=== PATIENT | female | born 1950 | race Caucasian/White ===

== ENCOUNTER → 2016-07-12 | Outpatient (CLI) | payer OTHER ==
[2015-11-18 17:30] VITALS: BP 152/77
[~2016-07-12] MED LIST: ASPI81TA2 PO; ESCI5TAB PO; ESOM2.5S PO; HYDR-971 PO; MAGN27TA3 PO; OMEG300C PO
[2016-07-12] MEDS: IOHEXOL 300 MG/ML 75 ML VIAL. IV ONE (09:58)
[2016-07-12] MEDS: IOHEXOL 240 MG/ML 50ML VIAL. PO ONE (09:59)
--- NOTE | 2016-07-12 11:20 | RAD ---
CT of the abdomen and pelvis with contrast, 07/12/2016: History: Left lower quadrant pain Multidetector CT imaging was performed following oral and IV administration of contrast. The liver is unremarkable. No gallbladder abnormality is seen. The pancreas shows no abnormality. There are calcified granulomata in the spleen. The spleen is of normal size. There appear to be several parapelvic renal cysts on the left. The kidneys show no evidence of obstruction. The adrenal glands are unremarkable. The abdominal aorta is of normal caliber. No abdominal or pelvic adenopathy is seen. The uterus is unremarkable. Several pelvic phleboliths are noted. The bowel loops are not dilated. The appendix is visualized and shows no abnormality. No free fluid is evident in the abdomen or pelvis. IMPRESSION: 1. Small left renal cysts. 2. No acute abdominal or pelvic abnormality is detected. PQRS Compliance Statement: One or more of the following individualized dose reduction techniques were utilized for this examination: 1. Automated exposure control 2. Adjustment of the mA and/or kV according to patient size 3. Use of iterative reconstruction technique
== END | disposition home or self-care (01) ==
LOC: CT 08:03
PROVIDERS: ATTEND Surgery
DX: R10.32 Left lower quadrant pain (principal); N28.1 Cyst of kidney, acquired
CPT/HCPCS: 74177; Q9966; Q9967

== ENCOUNTER → 2016-07-17 | Outpatient (CLI) | payer OTHER ==
[2015-11-18 17:30] VITALS: BP 152/77
--- NOTE | 2016-07-17 13:56 | RAD ---
Right breast ultrasound, 07/17/2016: History: Six-month follow-up of breast nodules A targeted ultrasound exam of the right breast was performed for reevaluation of small hypoechoic nodules seen on 02/09/2016. At the 6:00 location approximately 4 cm from the nipple there is a tiny 2 x 3 x 2 mm hypoechoic nodule which is unchanged. There is a nearby elongated 5 x 4 x 3 cm hypoechoic nodule which is also unchanged. These are likely complicated cysts versus small fibroadenomas. At the 7:00 location approximately 3 cm from the nipple there is an elongated lesion measuring 7 x 3 x 3 mm. This structure is nearly anechoic and is probably a cyst. It is unchanged. IMPRESSION: Stable small benign-appearing right breast nodules as described above. Further sonographic surveillance in 6 months at the time of the patient's yearly mammograms is suggested. BI-RADS 3-probably benign findings
== END | disposition home or self-care (01) ==
LOC: US 12:49
PROVIDERS: ATTEND Specialist
DX: N63 Unspecified lump in breast (principal)
CPT/HCPCS: 76641

== ENCOUNTER → 2016-07-24 | Outpatient (CLI) | payer MEDICARE, OTHER ==
[2015-11-18 17:30] VITALS: BP 152/77
--- NOTE | 2016-07-24 17:29 | RAD ---
PROCEDURE CT scan of the head without contrast 07/24/2016 HISTORY Diffuse headaches for 3 weeks. TECHNIQUE Unenhanced contiguous, 5 millimeter axial sections were obtained through the head. One or more of the following individualized dose reduction techniques were utilized for this study: 1. Automated exposure control. 2. Adjustment of the mA and/or kV according to patient size. 3. Use of iterative reconstruction technique. FINDINGS There is generalized parenchymal atrophy. Areas of decreased attenuation are seen within the white matter both cerebral hemispheres consistent with areas of small vessel ischemic disease. No acute parenchymal abnormality is seen. No extra-axial fluid collection is noted. No skull fracture is seen. IMPRESSION No acute intracranial abnormality is seen. Electronically signed by: Kenton Tse MD (Jul 24, 2016 17:27:40)
== END | disposition home or self-care (01) ==
LOC: CT 16:54
PROVIDERS: ATTEND Nurse Practitioner Family
DX: G44.59 Other complicated headache syndrome (principal)
CPT/HCPCS: 70450

== ENCOUNTER → 2017-01-15 | Outpatient (CLI) | payer MEDICARE, OTHER ==
[2015-11-18 17:30] VITALS: BP 152/77
[~2017-01-15] MED LIST changes: +ASPI-630 PO; -ASPI81TA2 PO; -ESCI5TAB PO; +ESCITALOPRAM OXA5 MG PO
--- NOTE | 2017-01-15 15:12 | RAD ---
DATE: 01/15/2017 EXAM: MAMMO DAVE DIAG BILAT, BREAST RIGHT HISTORY: 6 month follow-up COMPARISON: 12/26/2015 and ultrasound from 07/17/2016 This study was interpreted with the benefit of Computerized Aided Detection (CAD). FINDINGS: Breast Density: SCATTERED The breast parenchyma shows scattered fibroglandular densities. Breast parenchyma level B. Bilateral breast nodules are similar to prior exam. Left breast biopsy clip marker identified. On the ultrasound there is a small hypoechoic nodule measuring 2.1 mm at 6:00 position 2 cm of the nipple grossly similar to prior exam stable since 02/09/2016. At 7:00 position 3 cm from the nipple there is a cystic structure identified likely a cyst again noted. IMPRESSION: Benign findings BI-RADS CATEGORY: 2 BENIGN FINDING RECOMMENDED FOLLOW-UP: 12M 12 MONTH FOLLOW-UP PQRS compliance statement: Patient information was entered into a reminder system with a target due date 01/15/2018 for the next mammogram. Mammography is a sensitive method for finding small breast cancers, but it does not detect them all and is not a substitute for careful clinical examination. A negative mammogram does not negate a clinically suspicious finding and should not result in delay in biopsying a clinically suspicious abnormality. "Our facility is accredited by the [employer] Mammography Program."
== END | disposition home or self-care (01) ==
LOC: MAMMO 12:42
PROVIDERS: ATTEND Family Medicine
DX: N63 Unspecified lump in breast (principal)
CPT/HCPCS: 76641; G0204; G0279; 77062; 77066

== ENCOUNTER 2020-07-05 13:55 | Emergency (ER) | payer OTHER, MEDICARE ==
[~2020-07-05] VITALS: Ht 157.5 cm; Wt 93.0 kg
[~2020-07-05 13:55] MED LIST changes: +HYDR-3165 PO; -HYDR-971 PO
[2020-07-05] MEDS ORDERED: LORazepam 1 MG TABLET PO ONE (14:45)
--- NOTE | 2020-07-05 14:45 | PHYS DOC ---
Past History Past Medical History: Arthritis, GERD Past Surgical History: No Surgical History, Other Additional Past Surgical Histo: Bladder sling Alcohol Use: None Drug Use: None Adult General Chief Complaint Chief Complaint: FATIGUE HPI HPI Patient is a 69-year-old female who presents to the emergency department complaining of crying spells, sweating spells, periods of feeling shaky today. Patient states she has been closely followed by her primary care physician Dr. Stern related to ongoing "menopausal type symptoms ", patient states Dr. Stern had her see an rib knitter Dr. STEWART who performed an extensive work-up on her and started her on Metformin 500 mg a day with the plan to increase by 500 mg/day each week until she reaches a total of 2000 mg/day. Patient states she has not increased to 2 500 mg tabs per day yet, has only started approximately 5 to 6 days ago. Patient feels that this medication might be causing her symptoms. Patient reports frequent headaches however does not have a headache today. Patient denies abdominal pains, nausea, vomiting, diarrhea, or constipation. Patient denies chest pain, chest congestion, nasal congestion, cough, recent fever or chills. Patient denies numbness or tingling to her extremities. Patient states she was to stop her aspirin and start the Metformin. Patient states she had a negative mammogram and negative MRI this past week. Patient reports some low back pain intermittently that she attributes to taking care of her with a diagnosis of Parkinson's disease, rates her pain a 4/10 on a 1-10 pain scale when she does have pain, patient denies pain at this time. Patient denies burning with urination, increased urination, or other urinary tract infection type signs or symptoms. Patient denies vaginal discharge or vaginal bleeding. Patient denies any swelling to her extremities. Patient denies having increased thirst or increased urination. Patient states she is not diabetic. Review of Systems Review of Systems 14 body systems of review of systems have been reviewed. See HPI for pertinent positives and negative responses, otherwise all other systems are negative, nonpertinent or noncontributory. Allergies Allergies Allergies Coded Allergies Type Severity Reaction Last Updated Verified Sulfa (Sulfonamide Antibiotics) Allergy Intermediate 08/26/13 Yes dexamethasone Allergy Unknown 07/12/16 Yes tobramycin Allergy Unknown 07/12/16 Yes Physical Exam Physical Exam Constitutional: Well developed, well nourished, no acute distress, non-toxic appearance. Patient anxious during exam, moving around in bed. HENT: Normocephalic, atraumatic, bilateral external ears normal, oropharynx moist, no oral exudates, nose normal. Bilateral TMs within normal limits, no drainage from external auditory canals, bilateral nasal turbinates moist, no erythema or edema, no drainage noted, oropharynx moist, pink, without signs and symptoms of infectious process, there is no lymphadenopathy of the head or neck appreciated. Eyes: PERRLA, EOMI, conjunctiva normal, no discharge. Neck: Normal range of motion, no tenderness, supple, no stridor. No midline spinal tenderness, no meningismus signs, no nuchal rigidity appreciated. Cardiovascular:Heart rate regular rhythm, heart sounds S1-S2 to auscultation. Lungs & Thorax: Bilateral breath sounds clear to auscultation all lung borrego, no adventitious lung sounds appreciated. Abdomen: Bowel sounds normal, soft, no tenderness, no masses, no pulsatile masses. Skin: Warm, dry, no erythema, no rash. Back: No tenderness, no CVA tenderness. Extremities: No tenderness, no cyanosis, no clubbing, ROM intact, no edema. Neurologic: Alert and oriented X 3, normal motor function, normal sensory function, no focal deficits noted. Psychologic: Affect anxious, judgement normal, mood normal. Current Patient Data Vital Signs Vital Signs Date Time Temp Pulse Resp B/P (MAP) Pulse Ox O2 Delivery O2 Flow Rate FiO2 07/05/20 14:00 98.1 82 25 144/83 (103) 100 Room Air Lab Results Laboratory Tests Test 07/05/20 14:14 Glucose (Fingerstick) 106 mg/dL (70-99) H EKG EKG [] Radiology/Procedures Radiology/Procedures [] Heart Score C/O Chest Pain: No Risk Factors: Risk Factors: DM, Current or recent (<one month) smoker, HTN, HLP, family history of CAD, obesity. Risk Scores: Risk Factors: DM, Current or recent (<one month) smoker, HTN, HLP, family history of CAD, obesity. Course & Med Decision Making Course & Med Decision Making Pertinent Labs and Imaging studies reviewed. (See chart for details) 69-year-old female, vital signs reviewed, presents to the emergency department concerning for periods of crying, sweating, shaking. Physical examination concerning for anxiety attack versus anxiety reaction to medication changes. ED work-up CBC, CMP, urinalysis assay. TSH. Will give 1/2 mg p.o. Ativan for anxious presentation. Upon reexamination of the patient, patient states she feels much better and is having no more symptoms, patient feels as if the Ativan helped. Patient's labs are unremarkable, her urine was not infected, TSH is pending at this time however her rib knitter may have evaluated this in the past week however I did not have access to these lab values. Discussed with patient lab findings, with patient feeling much better after given anxiolytic medication, this most likely is a anxiety reaction to either physical concerns or medication change. Encouraged patient to follow-up with her primary care Dr. Stern and let her know she was treated with Ativan for consideration of a possible prescription for more. Patient states she will call today when she leaves the emergency department for an appointment to see Dr. Stern tomorrow. Patient states she has a follow-up appointment with her rib knitter this next month. Patient gave verbal understanding of discharge home instructions, follow-up with PCP, follow-up with endocrinology, return to ER precautions and concerns, was discharged home without incident. Dragon Disclaimer Dragon Disclaimer This electronic medical record was generated, in whole or in part, using a voice recognition dictation system. Departure Departure: Impression: Primary Impression: Anxiety reaction Disposition: 01 DC HOME SELF CARE/HOMELESS Condition: GOOD Referrals: NOHEMI STERN (PCP) Patient Instructions: Anxiety and Panic Attacks Additional Instructions: You are seen and evaluated today in the emergency department. Your urine did not show any concerning infectious findings, your lab work did not show any concerning infectious findings or abnormal values that need corrected in the emergency department today or need admission to the hospital. Your physical presentation had an anxiety component, I treated you with 1/2 mg Ativan tablet, this seemed to help as your symptoms resolved during your emergency department stay waiting for lab values to complete. Please call Dr. Stern tomorrow and let her know you were given 1/2 mg Ativan for your symptoms and it seemed to help as Dr. Stern may consider writing a prescription for more. Do not change any medication regimens your doctors have placed you on. Keep taking your medications as directed by them. Please keep your appointments with your rib knitter and Dr. Stern. Return to the emergency department for worsening symptoms or other concerns. EMERGENCY DEPARTMENT GENERAL DISCHARGE INSTRUCTIONS Thank you for coming to [facility] (ED) today and trusting us with you care. We trust that you had a positivie experience in our Emergency Department. If you wish to speak to the department management, you may call the director at [phone]. YOUR FOLLOW UP INSTRUCTIONS ARE FOLLOWS: 1. Do you have a private Doctor? If you do not have a private doctor, please ask for a resource list of physicians or clinics that may be able to assist you with follow up care. 2. The Emergency Physician has interpreted your x-rays. The X-Ray specialist will also review them. If there is a change in the findings, you will be notified in 48 hours when at all possible. 3. A lab test or culture has been done, your results will be reviewed and you will be notified if you need a change in treatment. ADDITIONAL INSTRUCTIONS AND INFORMATION: 1. Your care today has been supervised by a physician who is specially trained in emergency care. Many problems require more than one evaluation for a complete diagnosis and treatment. We recommend that you schedule your follow up appointment as recommended to ensure complete treatment of you illness or injury. If you are unable to obtain follow up care and continue to have a problem, or if your condition worsens, we recommend that you return to the ED. 2. We are not able to safely determine your condition over the phone nor are we able to give sound medical advice over the phone. For these safety reasons, if you call for medical advice we will ask you to come to the ED for further evaluation. 3. If you have any questions regarding these discharge instructions please call the ED at [phone]. SAFETY INFORMATION: In the interest of safety, wellness, and injury prevention; we encourage you to wear your sealbelt, if you smoke; quite smoking, and we encourage family to use a pro tective helmet for bicycling and other sporting events that present an increased risk for head injury. IF YOUR SYMPTOMS WORSEN OR NEW SYMPTOMS DEVELOP, OR YOU HAVE CONCERNS ABOUT YOUR CONDITION; OR IF YOUR CONDITION WORSENS WHILE YOU ARE WAITING FOR YOUR FOLLOW UP APPOINTMENT; EITHER CONTACT YOUR PRIMARY CARE DOCTOR, THE PHYSICIAN WHOSE NAME AND NUMBER YOU WERE GIVEN, OR RETURN TO THE ED IMMEDIATELY. KING PALACIO APRN Jul 05, 2020 14:45
[2020-07-05 15:31] LABS: BACTERIA,URINE 0 /HPF (0-FEW); BILIRUBIN,URINE NEG (NEG); CLARITY,URINE CLEAR; COLOR,URINE YELLOW; GLUCOSE,URINE NEG (NEG); HYALINE CASTS, URINE OCC /HPF; NITRITE,URINE NEG (NEG); RBC,URINE 0 /HPF (0-2); SQUAMOUS EPITHELIAL CELL,UR OCC /LPF; UROBILINOGEN,URINE 0.2 mg/dL (0.2 mg/dL); WBC,URINE RARE /HPF (0-4)
[2020-07-05 15:32] LABS: BASO % 1 % (0-3); EOS # 0.1 x10^3/uL (0.0-0.7); EOS % 1 % (0-3); HEMATOCRIT 38.2 % (36.0-47.0); HEMOGLOBIN 12.6 g/dL (12.0-15.5); LYMPH # 1.5 x10^3/uL (1.0-4.8); LYMPH % 26 % (24-48); MEAN CORPUSCULAR HEMOGLOBIN 31 pg (25-35); MEAN CORPUSCULAR HGB CONC 33 g/dL (31-37); MEAN CORPUSCULAR VOLUME 93 fL (79-100); MONO # 0.6 x10^3/uL (0.0-1.1); MONO % 10 % (0-9); NEUT # 3.6 x10^3uL (1.8-7.7); NEUT % 62 % (31-73); PLATELET COUNT 237 x10^3/uL (140-400); RED BLOOD COUNT 4.13 x10^6/uL (3.50-5.40); RED CELL DISTRIBUTION WIDTH 13.2 % (11.5-14.5); WHITE BLOOD COUNT 5.7 x10^3/uL (4.0-11.0)
[2020-07-05 15:36] LABS: CALCIUM 9.5 mg/dL (8.5-10.1); CREATININE 1.3 mg/dL (0.6-1.0); GFR 40.7
[2020-07-05 15:42] LABS: ALBUMIN 4.2 g/dL (3.4-5.0); ALBUMIN/GLOBULIN RATIO 1.3 (1.0-1.7); TOTAL BILIRUBIN 0.3 mg/dL (0.2-1.0); TOTAL PROTEIN 7.5 g/dL (6.4-8.2)
[2020-07-05 16:35] VITALS: BP 156/76
== END 2020-07-05 16:55 | disposition home or self-care (01) ==
LOC: ER 13:55
DX: F41.9 Anxiety disorder, unspecified (principal); M19.90 Unspecified osteoarthritis, unspecified site; K21.9 Gastro-esophageal reflux disease without esophagitis; Z88.2 Allergy status to sulfonamides; Z88.1 Allergy status to other antibiotic agents; Z88.8 Allergy status to other drugs, medicaments and biological substances
CPT/HCPCS: 36415; 80053; 81001; 82947; 84443; 85025; 87086; 99285

== ENCOUNTER → 2020-10-10 | Outpatient (CLI) | payer MEDICARE, OTHER ==
--- NOTE | 2020-10-10 11:56 | RAD ---
INDICATION: Screening for osteopenia/osteoporosis. Postmenopausal evaluation. COMPARISON: March 2015. TECHNIQUE: Bone densitometry was performed through the lumbar spine and proximal femur. IMPRESSION: Lumbar Spine: BMD: 1.0 T-Score: -1.3 Range: Osteopenic. Decreased by 3 percent from prior Proximal Femur: BMD: 0.77 T-Score: -1.5 Range: Osteopenic. Decreased from prior World Health Organization Criteria for Bone Density: T-Score: > -1.0: Normal Range < -1.0 to -2.5: Osteopenic Range < -2.5: Osteoporotic Range Electronically signed by: Tae Todd MD (10/10/2020 11:54 AM) [id number]
== END ==
LOC: DXRAD 09:56
PROVIDERS: ATTEND Family Medicine
DX: M85.88 Other specified disorders of bone density and structure, other site (principal)
CPT/HCPCS: 77080

== ENCOUNTER → 2021-01-18 | Outpatient (CLI) | payer MEDICARE, OTHER ==
--- NOTE | 2021-01-19 19:41 | RAD ---
DATE: 01/18/2021 EXAM: MAMMO DAVE SCREENING BILATERAL HISTORY: Screening COMPARISON: Prior exams dating back to 2013 This study was interpreted with the benefit of Computerized Aided Detection (CAD). Breast Density: SCATTERED The breast parenchyma shows scattered fibroglandular densities. Breast parenchyma level B. FINDINGS: No mass, suspicious calcification, or architectural distortion in either breast. IMPRESSION: No evidence of malignancy. BI-RADS CATEGORY: 1 NEGATIVE RECOMMENDED FOLLOW-UP: 12M 12 MONTH FOLLOW-UP PQRS compliance statement: Patient information was entered into a reminder system with a target due date for the next mammogram. Mammography is a sensitive method for finding small breast cancers, but it does not detect them all and is not a substitute for careful clinical examination. A negative mammogram does not negate a clinically suspicious finding and should not result in delay in biopsying a clinically suspicious abnormality. "Our facility is accredited by the [employer] Mammography Program."
== END ==
LOC: MAMMO 10:02
PROVIDERS: ATTEND Family Medicine
DX: Z12.31 Encounter for screening mammogram for malignant neoplasm of breast (principal)
CPT/HCPCS: 77063; 77067

== ENCOUNTER → 2021-04-19 | Outpatient (CLI) | payer MEDICARE, OTHER ==
[~2021-04-19] MED LIST changes: +IOHEXOL 350 MG/ML 100 ML VIAL. IV ONE
--- NOTE | 2021-04-19 12:01 | RAD ---
EXAM: Chest CT with intravenous contrast. HISTORY: Pain. TECHNIQUE: Computed tomographic images of the chest were obtained following the administration of int ravenous contrast. Multiplanar reformatting was performed. *One or more of the following individualized dose reduction techniques were utilized for this examina tion: 1. Automated exposure control. 2. Adjustment of the mA and/or kV according to patient size. 3. Use of iterative reconstruction technique. COMPARISON: None. FINDINGS: The heart is upper normal in size. The aorta is normal in caliber. There is a common origin of the right innominate and left common carotid arteries, a normal aortic arch branching variant. No pathologically enlarged mediastinal or hilar lymph node is seen. There are a few calcified granuloma s. There is no pneumothorax. There is no pleural effusion. There is no infiltrate. There is medial right middle lobe and lingular pleural parenchymal scarring or atelectasis. There is no acute finding invo lving the upper abdomen. There are multiple simple appearing left renal cysts measuring up to 2.0 cm. Follow-up is not routinely performed for simple renal cysts. There is degenerative change involving the spine. There is no acute or suspicious osseous finding. IMPRESSION: No acute thoracic finding. Electronically signed by: Ashanti Knight MD (04/19/2021 11:59 AM) [id number]
== END ==
LOC: CT 09:51
PROVIDERS: ATTEND Internal Medicine Gastroenterology
DX: J84.10 Pulmonary fibrosis, unspecified (principal); N28.1 Cyst of kidney, acquired; M47.819 Spondylosis without myelopathy or radiculopathy, site unspecified
CPT/HCPCS: 36415; 71260; 82565; 84520; Q9967

== ENCOUNTER → 2021-07-10 | Outpatient (CLI) | payer OTHER ==
[~2021-07-10] MED LIST changes: -IOHEXOL 350 MG/ML 100 ML VIAL. IV ONE
--- NOTE | 2021-07-11 09:49 | RAD ---
XR LUMBAR SPINE 4+V History: Reason: LOW BACK PAIN, LEFT SIDE BACK PAIN, INJURY WHILE LIFTING / Spl. Instructions: / His tory: Technique: 5 views lumbar spine. Comparison: None. Findings: Transitional lumbosacral anatomy with lumbarization of S1. Normal vertebral body height. No acute fra cture. Moderate degenerative disc changes most prominent L4-5 and L5-S1. Impression: 1. Transitional lumbosacral anatomy. 2. Moderate lumbar spondylosis. Electronically signed by: Barrera East DO (07/11/2021 9:47 AM) [id number]
== END ==
LOC: RAD 11:42
PROVIDERS: ATTEND Pain Medicine Interventional Pain Medicine
DX: M47.27 Other spondylosis with radiculopathy, lumbosacral region (principal); M43.8X7 Other specified deforming dorsopathies, lumbosacral region; M46.06 Spinal enthesopathy, lumbar region
CPT/HCPCS: 72110